=== PATIENT | male | born 1970 | race Hispanic/Latino ===

== ENCOUNTER 2017-11-02 13:08 | Emergency (ER) | payer BC ==
[~2017-11-02] VITALS: Ht 177.8 cm; Wt 88.9 kg
[2017-11-02] MEDS ORDERED: ASPIRIN 81 MG CHEW TAB PO ONE (13:30)
[2017-11-02 13:56] LABS: BASOPHILS # (AUTO) 0.1 (0.0-0.1); BASOPHILS % 0.8 % (0.0-1.0); EOSINOPHILS # (AUTO) 0.1 (0.0-0.4); EOSINOPHILS % 1.2 % (0.0-6.0); HEMATOCRIT 42.6 % (38.2-49.6); HEMOGLOBIN 14.8 g/dL (14.0-18.0); LYMPHOCYTES % 27.3 % (18.0-39.1); MEAN CORPUSCULAR HEMOGLOBIN 30.3 pg (28-32); MEAN CORPUSCULAR HGB CONC 34.7 g/dL (31-35); MEAN CORPUSCULAR VOLUME 87.1 fL (81-99); MONOCYTES # (AUTO) 0.4 (0.2-0.8); MONOCYTES % 5.8 % (4.4-11.3); NEUTROPHILS # (AUTO) 4.8 (2.1-6.9); NEUTROPHILS % 64.6 % (38.7-80.0); PLATELET COUNT 262 x10e3/uL (140-360); RED BLOOD COUNT 4.89 x10e6/uL (4.3-5.7); RED CELL DISTRIBUTION WIDTH 12.5 % (11.7-14.4)
[2017-11-02 14:13] LABS: ALANINE AMINOTRANSFERASE 34 IU/L (0-55); ALBUMIN 4.3 g/dL (3.5-5.0); ALBUMIN/GLOBULIN RATIO 1.3 (0.8-2.0); ALKALINE PHOSPHATASE 65 IU/L (40-150); ANION GAP 17.8 mmol/L (8-16); BLOOD UREA NITROGEN 15 mg/dL (7-26); BUN/CREATININE RATIO 15 (6-25); CALCIUM 9.5 mg/dL (8.4-10.2); CARBON DIOXIDE 20 mmol/L (22-29); CHLORIDE 108 mmol/L (98-107); CREATINE KINASE 94 IU/L (30-200); CREATININE, SERUM 1.03 mg/dL (0.72-1.25); EST GLOMERULAR FILTRATION RATE > 60 ML/MIN (60-); GLUCOSE 87 mg/dL (74-118); POTASSIUM 3.8 mmol/L (3.5-5.1); SODIUM 142 mmol/L (136-145)
--- NOTE | 2017-11-02 14:13 | Diagnostic Imaging Report ---
PROCEDURE: CHEST SINGLE (PORTABLE) COMPARISON: None. INDICATIONS: CHEST PAIN, SHORTNESS OF BREATH FINDINGS: LUNGS: Clear. No mass or infiltrate. Vascular markings are normal. PLEURA: No effusions or pneumothorax. HEART \T\ MEDIASTINUM: The heart is within normal size-limits. BONES \T\ SOFT TISSUES: No acute findings. CONCLUSION: No acute thoracic abnormality. Dictated by: Luke Sebastian M.D. on 11/02/2017 at 14:18 Electronically approved by: Luke Sebastian M.D. on 11/02/2017 at 14:18
[2017-11-02] MEDS ORDERED: SODIUM CHLORIDE 0.9% 50ML 50 ML ONE (15:25)
[2017-11-02] MEDS ORDERED: IOPAMIDOL 370 MG/ML 200 ML INFUS..BTL INJ ONE (15:25)
--- NOTE | 2017-11-02 16:20 | Diagnostic Imaging Report ---
PROCEDURE:CT PE CHEST WITH CONTRAST COMPARISON:[facility], DX, CHEST SINGLE (PORTABLE), 11/02/2017, 13:56. INDICATIONS:SHORTNESS OF BREATH, CHEST PAIN TECHNIQUE: Axial CT images of the chest were obtained after the intravenous administration of 74 cc of contrast. Coronal and sagittal reformations were made available for review. RADIATION DOSE: Total DLP: 694.69 mGy*cm Estimated effective dose: (DLP x 0.014 x size factor) mSv FINDINGS: Vessels:No filling defects in the pulmonary arteries. No evidence of aortic aneurysm or dissection. Lymph nodes: No enlarged axillary, supraclavicular, mediastinal, or hilar lymph nodes. Thyroid/base of neck: Unremarkable. Lungs: No consolidations or edema. No evidence of mass. Airways: Clear. Pleura:No pleural effusion or pneumothorax. Heart \T\ Mediastinum:The heart is normal in size. No pericardial effusion. The esophagus is collapsed. Upper abdomen:Visualized portions of the liver, pancreas, spleen, adrenal glands, and kidneys are unremarkable. Visualized portions of the gallbladder and biliary tree are normal. Musculoskeletal:No focal osseous lesions. Soft tissues are unremarkable. CONCLUSION: No evidence of pulmonary embolus or aortic dissection. No pulmonary abnormalities to explain shortness of breath. The visualized upper abdomen is normal. Dictated by: Luke Sebastian M.D. on 11/02/2017 at 16:25 Electronically approved by: Luke Sebastian M.D. on 11/02/2017 at 16:25
--- NOTE | 2017-11-02 16:32 | Diagnostic Imaging Report ---
History: Shortness of breath Comparison studies: None Technique: Axial images were obtained from the skull base to the vertex. Coronal and sagittal reconstructions obtained from the axial data. Findings: Scalp/skull: No abnormalities. No fractures, blastic or lytic lesions. Extra-axial spaces: No masses. No fluid collections. Brain sulci: Appropriate for age. Ventricles: Normal in size and configuration. No hydrocephalus. Parenchyma: No abnormal densities. No masses, hemorrhage, acute or chronic cortical vascular insults. Sellar/suprasellar region: No abnormalities Craniocervical junction: Patent foramen magnum. No Chiari one malformation. IMPRESSION: No abnormalities . Signed by: DR Jah Acuna M.D. on 11/02/2017 4:29 PM
== END 2017-11-02 18:42 | disposition home or self-care (01) ==
LOC: ER 13:08
DX: R06.09 Other forms of dyspnea (principal)
CPT/HCPCS: 36415; 70450; 71045; 71260; 80053; 82550; 82553; 84484; 85025; 93005; 99284; Q9967